=== PATIENT | male | born 1975 | race Caucasian/White ===

== ENCOUNTER 2017-09-20 15:13 | Inpatient (IN) | payer OTHER, MEDICARE ==
[~2017-09-20] VITALS: Ht 182.9 cm; Wt 85.7 kg
--- NOTE | ~2017-09-20 | PR ---
[place], [place] PROGRESS NOTE NAME: CLEOPATRA BELLA UNIT #: [id number] ROOM: 407 DOCTOR: HAZEL KAYE,KAILEY BIRTHDATE: [birth year] DOS: 09/22/2017 REASON FOR VISIT: Chest pain and coronary artery disease. HISTORY OF PRESENT ILLNESS: The patient, 41-year-old gentleman with history of hypertension, CAD, vascular disease, anemia, end-stage renal disease. Denies any chest pain or shortness of breath. He had a stress test yesterday, showed some anterolateral ischemia; however, Dr. Caicedo recommended medical therapy due to his cardiac catheterization findings in 2017. REVIEW OF SYSTEMS: Review of the 8 systems negative except as mentioned above. RHYTHM STRIPS: The patient is in sinus rhythm. PHYSICAL EXAMINATION: VITAL SIGNS: Blood pressure 116/72, pulse 60, respirations 16. GENERAL: Alert, comfortable, in no acute distress. NECK: Supple, no distended neck veins, no carotid bruit. CHEST: Symmetrical, nontender. LUNGS: Few scattered rhonchi. ABDOMEN: Benign, nontender. Bowel sounds normal. EXTREMITIES: Showed no edema. Distal pulses are palpable. SKIN: Warm and dry. No cyanosis, no clubbing. NEUROLOGIC: The patient is alert, oriented. No focal neurologic deficit. GENITOURINARY: Deferred. Medications and labs reviewed. IMPRESSION: 1. Chest pain, currently stable. 2. Abnormal stress test with some anterolateral ischemia, currently stable. 3. Coronary artery disease, cardiac catheterization 2017, medical therapy recommended. 4. Hypertension, stable. 5. End-stage renal disease, on dialysis. 6. Status post aortic valve replacement. 7. History of abdominal aortic aneurysm repair. 8. Anemia. RECOMMENDATIONS: 1. Continue current medications. 2. He is chest pain free. 3. Cardiology will sign off and follow up in our office in 2 to 3 weeks after discharge. 4. There is no family at bedside at the time of my examination. 5. Above treatment plan discussed with the patient and all questions were answered. 6. He will follow with after discharge. [place], [place] PROGRESS NOTE NAME: CLEOPATRA BELLA UNIT #: [id number] ROOM: 407 DOCTOR: KAILEY OLIVA MD BIRTHDATE: [birth year] KAILEY OLIVA MD CM:OPAL [id number] KAILEY OLIVA MD 09/23/17 0616 interface
--- NOTE | ~2017-09-20 | EKG ---
[place], [place] ELECTROCARDIOGRAM REPORT NAME: CLEOPATRA BELLA UNIT #: [id number] ROOM: 407 DOCTOR: HAZEL KAYE,KAILEY BIRTHDATE: [birth year] DOS: 09/21/2017 TIME: 2201 hours. IMPRESSION: 1. Sinus rhythm. 2. Lateral ST-T changes. 3. Old anteroseptal infarction. 4. Baseline artifact. KAILEY OLIVA MD CM:EKGRPT:ELECTROCARDIOGRAM REPORT [id number] KAILEY OLIVA MD
[2017-09-20 15:13] VITALS: BP 124/72
[2017-09-20] MEDS ORDERED: TOPROL XL25 MG PO (15:43)
[2017-09-20] MEDS ORDERED: FLOMAX0.4 MG PO (15:43)
[2017-09-20 15:44] LABS: BASO # 0.1 10*3/uL (0.0-0.1); BASO % 0.9 % (0.0-1.0); EOS # 0.1 10*3/uL (0.0-0.4); EOS % 1.1 % (1.0-4.0); HEMATOCRIT 31.2 % (42.0-52.0); HEMOGLOBIN 10.3 g/dl (14.0-18.0); LYMPH # 1.8 10*3/uL (1.3-4.4); LYMPH % 23.2 % (27.0-41.0); MEAN CORPUSCULAR HGB 30.4 pg (27.0-31.0); MEAN PLATELET VOLUME 9.9 fl (9.6-12.3); MONO # 0.8 10*3/uL (0.1-1.0); MONO % 10.7 % (3.0-9.0); NEUT % 63.7 % (47.0-73.0); PLATELET COUNT AUTOMATED 136 10*3/uL (130-400); RED BLOOD COUNT 3.39 10*6/uL (4.50-5.90); RED CELL DISTRI WIDTH 16.5 % (0-14.5); WHITE BLOOD COUNT 7.8 10*3/uL (4.8-10.8)
[2017-09-20] MEDS ORDERED: ALLOPURINOL100 MG PO (15:44)
[2017-09-20] MEDS ORDERED: LIPITOR80 MG PO (15:44)
[2017-09-20] MEDS ORDERED: AMLODIPINE BESY10 MG PO (15:44)
[2017-09-20] MEDS ORDERED: MIDODRINE HCL5 M1 PO ×2 (15:45→17:38)
[2017-09-20] MEDS ORDERED: ISOSORBIDE DINI30 MG PO (15:46)
[2017-09-20] MEDS ORDERED: VITAMIN B-12100 MCG PO (15:46)
[2017-09-20] MEDS ORDERED: ASPIRIN81 M1 PO (15:47)
[2017-09-20] MEDS ORDERED: NEURONTIN100 MG PO (15:47)
[2017-09-20] MEDS ORDERED: NATURE'S BLEND F1 MG PO (15:47)
[2017-09-20 16:00] LABS: ALBUMIN 3.5 gm/dl (3.1-4.5); CREATININE 6.57 mg/dL (0.70-1.30); POTASSIUM 3.8 mmol/L (3.5-5.1); TOTAL PROTEIN 7.5 gm/dL (6.4-8.2)
[2017-09-20 16:01] LABS: ACT PARTIAL THROMBO TIME 26.9 SECONDS (20.8-31.5); INTERNATIONAL NORM RATIO 1.1 (2.0-3.5)
[2017-09-20 16:07] VITALS: BP 143/74
[2017-09-20 16:07] LABS: TROPONIN I 0.077 ng/ml (<0.045)
[2017-09-20] MEDS ORDERED: CALCIUM ACETAT667 M2 PO (17:11)
[2017-09-20] MEDS ORDERED: Lopressor25 MG PO (17:35)
[2017-09-20] MEDS ORDERED: SODIUM BICARBO650 MG PO (17:36)
[2017-09-20] MEDS ORDERED: PERCOCET 5-3251 EACH PO (17:41)
[2017-09-20 17:52] VITALS: BP 164/98
[2017-09-20] MEDS ORDERED: CYMBALTA30 MG PO (18:07)
[2017-09-20] MEDS ORDERED: TRAZODONE50 MG PO (18:10)
[2017-09-20] MEDS ORDERED: ELIQUIS5 M1 PO (18:21)
[2017-09-20 20:00] VITALS: BP 149/76
[2017-09-21] VITALS: BP 141/81
[2017-09-21 07:22] LABS: BASO # 0.1 10*3/uL (0.0-0.1); BASO % 0.7 % (0.0-1.0); EOS # 0.2 10*3/uL (0.0-0.4); EOS % 2.1 % (1.0-4.0); HEMATOCRIT 31.4 % (42.0-52.0); HEMOGLOBIN 10.1 g/dl (14.0-18.0); LYMPH # 1.7 10*3/uL (1.3-4.4); LYMPH % 24.9 % (27.0-41.0); MEAN CELL VOLUME 94.6 fl (80.0-94.0); MEAN CORPUSCULAR HGB 30.4 pg (27.0-31.0); MEAN CORPUSCULAR HGB CONC 32.2 g/dl (33.0-37.0); MONO # 0.8 10*3/uL (0.1-1.0); MONO % 11.6 % (3.0-9.0); NEUT # 4.2 10*3/uL (2.3-7.9); NEUT % 60.4 % (47.0-73.0); PLATELET COUNT AUTOMATED 130 10*3/uL (130-400); RED BLOOD COUNT 3.32 10*6/uL (4.50-5.90); RED CELL DISTRI WIDTH 16.4 % (0-14.5)
[2017-09-21 07:47] LABS: VITAMIN D, 25-HYDROXY 33.5 ng/mL (30-100)
[2017-09-21 07:50] LABS: ALBUMIN 3.2 gm/dl (3.1-4.5); CREATININE 8.16 mg/dL (0.70-1.30); PHOSPHOROUS 6.6 mg/dL (2.5-4.9); POTASSIUM 4.5 mmol/L (3.5-5.1)
[2017-09-21 07:56] LABS: THYROID STIM HORMONE (HS) 1.24 uIU/ml (0.358-4.75)
[2017-09-21 08:00] VITALS: BP 136/71
[2017-09-21 12:00] VITALS: BP 118/69
[2017-09-21 20:48] VITALS: BP 138/85
[2017-09-22] VITALS: BP 137/81
[2017-09-22 03:38] LABS: BASO # 0.1 10*3/uL (0.0-0.1); BASO % 0.8 % (0.0-1.0); EOS # 0.1 10*3/uL (0.0-0.4); EOS % 1.8 % (1.0-4.0); HEMATOCRIT 33.6 % (42.0-52.0); HEMOGLOBIN 10.9 g/dl (14.0-18.0); LYMPH # 2.2 10*3/uL (1.3-4.4); LYMPH % 30.7 % (27.0-41.0); MEAN CELL VOLUME 93.9 fl (80.0-94.0); MEAN CORPUSCULAR HGB 30.4 pg (27.0-31.0); MEAN CORPUSCULAR HGB CONC 32.4 g/dl (33.0-37.0); MEAN PLATELET VOLUME 10.6 fl (9.6-12.3); MONO # 0.9 10*3/uL (0.1-1.0); MONO % 11.8 % (3.0-9.0); NEUT % 54.5 % (47.0-73.0); PLATELET COUNT AUTOMATED 160 10*3/uL (130-400); RED BLOOD COUNT 3.58 10*6/uL (4.50-5.90); RED CELL DISTRI WIDTH 16.4 % (0-14.5); WHITE BLOOD COUNT 7.3 10*3/uL (4.8-10.8)
[2017-09-22 03:53] LABS: CREATININE 5.28 mg/dL (0.70-1.30); PHOSPHOROUS 5.6 mg/dL (2.5-4.9); POTASSIUM 4.3 mmol/L (3.5-5.1)
[2017-09-22 04:00] VITALS: BP 137/81
[2017-09-22 08:00] VITALS: BP 121/68
[2017-09-22 12:00] VITALS: BP 116/72
[2017-09-22] MEDS ORDERED: METOPROLOL TART50 M1 PO (15:48)
[2017-09-22] MEDS ORDERED: IMDUR SA60 M1 PO (15:48)
[2017-09-22 16:00] VITALS: BP 97/58
== END 2017-09-22 15:30 | disposition home or self-care (01) | DRG 280 ==
LOC: ED 15:13 → EDHOLD 16:23 → 4E 16:23
PROVIDERS: Emergency Medicine; Internal Medicine Hospice and Palliative Medicine
PROC: 3E073KZ Introduction of Other Diagnostic Substance into Coronary Artery, Percutaneous Approach (ICD-10-PCS; principal; 2017-09-21)
PROC: 5A1D70Z Performance of Urinary Filtration, Intermittent, Less than 6 Hours Per Day (ICD-10-PCS; principal; 2017-09-21)
PROC: 4A02XM4 Measurement of Cardiac Total Activity, External Approach (ICD-10-PCS; principal; 2017-09-21)
DX: I21.4 Non-ST elevation (NSTEMI) myocardial infarction (principal); N18.6 End stage renal disease; I26.99 Other pulmonary embolism without acute cor pulmonale; I13.2 Hypertensive heart and chronic kidney disease with heart failure and with stage 5 chronic kidney disease, or end stage renal disease; D68.59 Other primary thrombophilia; R65.10 Systemic inflammatory response syndrome (SIRS) of non-infectious origin without acute organ dysfunction; I50.42 Chronic combined systolic (congestive) and diastolic (congestive) heart failure; G62.9 Polyneuropathy, unspecified; M32.14 Glomerular disease in systemic lupus erythematosus; K21.9 Gastro-esophageal reflux disease without esophagitis; I25.119 Atherosclerotic heart disease of native coronary artery with unspecified angina pectoris; N40.0 Benign prostatic hyperplasia without lower urinary tract symptoms; F41.1 Generalized anxiety disorder; I44.0 Atrioventricular block, first degree; I37.1 Nonrheumatic pulmonary valve insufficiency; G89.29 Other chronic pain; D64.9 Anemia, unspecified; J44.9 Chronic obstructive pulmonary disease, unspecified; N25.0 Renal osteodystrophy; D72.810 Lymphocytopenia; E78.00 Pure hypercholesterolemia, unspecified; M1A.09X0 Idiopathic chronic gout, multiple sites, without tophus (tophi); F32.9 Major depressive disorder, single episode, unspecified; I71.4 Abdominal aortic aneurysm, without rupture; Z86.73 Personal history of transient ischemic attack (TIA), and cerebral infarction without residual deficits; Z87.892 Personal history of anaphylaxis; Z90.49 Acquired absence of other specified parts of digestive tract; Z95.5 Presence of coronary angioplasty implant and graft; Z87.891 Personal history of nicotine dependence; Z82.49 Family history of ischemic heart disease and other diseases of the circulatory system; Z82.0 Family history of epilepsy and other diseases of the nervous system; Z79.82 Long term (current) use of aspirin; Z79.899 Other long term (current) drug therapy; Z95.1 Presence of aortocoronary bypass graft